=== PATIENT | male | born 1960 | race Caucasian/White ===

== ENCOUNTER → 2019-11-28 | Outpatient (CLI) | payer OTHER | END | disposition home or self-care (01) | LOC: CFH 15:08 | PROVIDERS: ATTEND Internal Medicine Cardiovascular Disease | DX: I08.0 Rheumatic disorders of both mitral and aortic valves (principal); I11.9 Hypertensive heart disease without heart failure | CPT/HCPCS: 93306 ==

== ENCOUNTER 2019-12-21 10:58 | Day surgery (SDC) | payer OTHER ==
[~2019-12-21] VITALS: Ht 172.7 cm; Wt 86.4 kg
[2019-12-21 11:32] VITALS: BP 148/78
[2019-12-21 11:52] LABS: BASOPHILS % (AUTO) 1 % (0-1); EOSINOPHILS % (AUTO) 0 % (1-7); LYMPHOCYTES % (AUTO) 25 % (22-44); MEAN CORPUSCULAR HEMOGLOBIN 30.4 pg (27.5-34.5); MEAN CORPUSCULAR HGB CONC 33.8 g/dL (33.2-36.2); MEAN PLATELET VOLUME 8.7 fL (7.4-10.4); MONOCYTES % (AUTO) 7 % (2-9); NEUTROPHILS % (AUTO) 67 % (42-75); PLATELET COUNT 218 x10^3/uL (130-400); RED BLOOD COUNT 5.53 x10^6/uL (4.38-5.82)
[2019-12-21 11:55] LABS: MD NO
[2019-12-21 11:58] LABS: ANION GAP 5 mmol/L (5-15); CHLORIDE 111 mmol/L (98-107); CREATININE 0.99 mg/dL (0.7-1.3)
[2019-12-21] MEDS ORDERED: SODIUM CHLORIDE 0.9% 1,000 ML IV SCH ×2 (12:00→13:30)
[2019-12-21] MEDS ORDERED: MIDAZOLAM 1 MG/ML, 5ML ONE (12:33)
[2019-12-21] MEDS ORDERED: BIVALIRUDIN 250 MG ONE (12:33)
[2019-12-21] MEDS ORDERED: LIDOCAINE-MPF 1%, 5ML ONE (12:33)
[2019-12-21] MEDS ORDERED: TICAGRELOR 90 MG TABLET ONE (12:33)
[2019-12-21] MEDS ORDERED: HEPARIN 1,000 UNITS/ML, 10ML ONE (12:33)
[2019-12-21] MEDS ORDERED: FENTANYL PF 100 MCG/2ML ONE (12:33)
[2019-12-21] MEDS ORDERED: VERAPAMIL 2.5 MG/ML, 2ML ONE (12:33)
== END 2019-12-21 14:47 | disposition home or self-care (01) ==
LOC: CACL 10:58
PROVIDERS: ATTEND Internal Medicine Cardiovascular Disease
DX: I35.0 Nonrheumatic aortic (valve) stenosis (principal); I77.810 Thoracic aortic ectasia
CPT/HCPCS: 36415; 80048; 85025; 93454; 99156; C1769; C1894; J1644; J2250; J3010; Q9967; 93458; J0583

== ENCOUNTER 2019-12-28 09:56 | Outpatient (CLI) | payer OTHER ==
[2019-12-28] MEDS ORDERED: VISIPAQUE 320 MG/ML, 150ML BOTTLE ONE (11:47)
== END 2019-12-28 23:59 | disposition home or self-care (01) ==
LOC: CVU 09:56 → RAD 23:59
PROVIDERS: ATTEND Internal Medicine Cardiovascular Disease
DX: Z01.810 Encounter for preprocedural cardiovascular examination (principal); I35.0 Nonrheumatic aortic (valve) stenosis; K76.89 Other specified diseases of liver; N28.89 Other specified disorders of kidney and ureter; K57.30 Diverticulosis of large intestine without perforation or abscess without bleeding; I65.23 Occlusion and stenosis of bilateral carotid arteries; R06.02 Shortness of breath
CPT/HCPCS: 71275; 74174; 93880; 94010; 94726; 94729; Q9967

== ENCOUNTER 2020-02-22 11:28 | Outpatient (CLI) | payer OTHER ==
[~2020-02-22 11:28] MED LIST: NONE PER PT
[2020-02-22 12:37] LABS: BASOPHILS % (AUTO) 0 % (0-1); EOSINOPHILS % (AUTO) 1 % (1-7); LYMPHOCYTES % (AUTO) 26 % (22-44); MEAN CORPUSCULAR HEMOGLOBIN 30.6 pg (27.5-34.5); MEAN CORPUSCULAR HGB CONC 34.3 g/dL (33.2-36.2); MONOCYTES % (AUTO) 6 % (2-9); NEUTROPHILS % (AUTO) 67 % (42-75); PLATELET COUNT 225 x10^3/uL (130-400); RED BLOOD COUNT 5.29 x10^6/uL (4.38-5.82); RED CELL DISTRIBUTION WIDTH 13.1 % (9.4-14.8)
[2020-02-22 12:39] LABS: MD NO
[2020-02-22 12:46] LABS: ALANINE AMINOTRANSFERASE 28 U/L (12-78); ALBUMIN 3.8 g/dL (3.4-5.0); ANION GAP 3 mmol/L (5-15); CALCIUM 8.7 mg/dL (8.5-10.1); CHLORIDE 108 mmol/L (98-107)
[2020-02-22 12:49] LABS: ALKALINE PHOSPHATASE 114 U/L (45-117); BILIRUBIN,TOTAL 0.6 mg/dL (0.2-1.0); CREATININE 0.97 mg/dL (0.7-1.3); TOTAL PROTEIN 7.2 g/dL (6.4-8.2)
[2020-02-22 12:55] LABS: MICROSCOPIC NOT IND
[2020-02-22 13:05] LABS: INTERNATIONAL NORMALIZED RATIO 1.02 (0.93-1.1); PROTHROMBIN TIME 10.8 Seconds (9.6-11.5)
[2020-03-01] MEDS ORDERED: POTA20TA6 PO (12:48)
[2020-03-01] MEDS ORDERED: TRAM50TA2 PO (12:48)
[2020-03-01] MEDS ORDERED: FURO-93 PO (12:48)
[2020-03-01] MEDS ORDERED: ASPI81TA45 PO (12:48)
[2020-03-01] MEDS ORDERED: METO25TA35 PO (12:48)
== END 2020-02-22 23:59 | disposition home or self-care (01) ==
LOC: STAR 11:28
PROVIDERS: ATTEND Thoracic Surgery (Cardiothoracic Vascular Surgery)
DX: Z01.812 Encounter for preprocedural laboratory examination (principal); Z20.828 Contact with and (suspected) exposure to other viral communicable diseases; R94.31 Abnormal electrocardiogram [ECG] [EKG]; I51.7 Cardiomegaly; I35.0 Nonrheumatic aortic (valve) stenosis; I71.2 Thoracic aortic aneurysm, without rupture
CPT/HCPCS: 71046; 80053; 81003; 83036; 85025; 85610; 85730; 87635; 93005

== ENCOUNTER → 2020-05-23 | Outpatient (CLI) | payer OTHER ==
[~2020-05-23] MED LIST changes: +ASPI81TA45 PO; +FURO-93 PO; +METO25TA35 PO; +POTA20TA6 PO; +TRAM50TA2 PO
[2020-05-23 15:04] LABS: BASOPHILS % (AUTO) 1 % (0-1); EOSINOPHILS % (AUTO) 1 % (1-7); LYMPHOCYTES % (AUTO) 26 % (22-44); MEAN CORPUSCULAR HEMOGLOBIN 29.1 pg (27.5-34.5); MEAN CORPUSCULAR HGB CONC 33.1 g/dL (33.2-36.2); MEAN PLATELET VOLUME 9.4 fL (7.4-10.4); MONOCYTES % (AUTO) 7 % (2-9); NEUTROPHILS % (AUTO) 65 % (42-75); PLATELET COUNT 220 x10^3/uL (130-400); RED BLOOD COUNT 5.33 x10^6/uL (4.38-5.82); RED CELL DISTRIBUTION WIDTH 14.1 % (9.4-14.8)
[2020-05-23 15:04] LABS: MICROSCOPIC NOT IND
[2020-05-23 15:08] LABS: MD NO
[2020-05-23 15:20] LABS: ALBUMIN 3.9 g/dL (3.4-5.0); ANION GAP 5 mmol/L (5-15); CHLORIDE 106 mmol/L (98-107); INTERNATIONAL NORMALIZED RATIO 1.02 (0.93-1.1); PROTHROMBIN TIME 10.9 Seconds (9.6-11.5)
[2020-05-23 15:22] LABS: ALANINE AMINOTRANSFERASE 24 U/L (12-78); ALKALINE PHOSPHATASE 127 U/L (45-117); BILIRUBIN,TOTAL 0.3 mg/dL (0.2-1.0); CREATININE 0.87 mg/dL (0.7-1.3); TOTAL PROTEIN 7.4 g/dL (6.4-8.2)
== END | disposition home or self-care (01) ==
LOC: STAR 14:03
PROVIDERS: ATTEND Urology
DX: Z01.818 Encounter for other preprocedural examination (principal); N28.89 Other specified disorders of kidney and ureter; Z20.822 Contact with and (suspected) exposure to COVID-19
CPT/HCPCS: 36415; 80053; 81003; 85025; 85610; 87086; 93005; U0003

== ENCOUNTER 2020-05-29 05:53 | Inpatient (IN) | payer OTHER ==
[~2020-05-29] VITALS: Ht 172.7 cm; Wt 93.0 kg
[2020-05-29 06:27] VITALS: BP 127/80
[2020-05-29] MEDS ORDERED: LACTATED RINGERS 1,000 ML IV SCH (06:30)
[2020-05-29] MEDS ORDERED: CHLORHEXIDINE 15 ML UDC PO ONE (06:30)
[2020-05-29] MEDS ORDERED: BUPIVACAINE/PF-EPI 0.25% 1:200K ONE (07:04)
[2020-05-29] MEDS ORDERED: MANNITOL PMX 20% 500 ML ONE ×2 (07:04→07:13)
[2020-05-29] MEDS ORDERED: INDIGO CARMINE 0.8%, 5ML ONE (07:04)
[2020-05-29] MEDS ORDERED: FUROSEMIDE 20 MG/2 ML ONE ×2 (07:04→07:12)
[2020-05-29] MEDS ORDERED: ALBUMIN HUMAN 5% 500 ML ONE (07:13)
[2020-05-29] MEDS ORDERED: MIDAZOLAM 1 MG/ML, 2ML ONE (07:15)
[2020-05-29] MEDS ORDERED: FENTANYL PF 250 MCG/5ML ONE (07:15)
[2020-05-29] MEDS ORDERED: PHENYLEPHRINE 10 MG/ML ONE (07:28)
[2020-05-29] MEDS ORDERED: DEXAMETHASONE 4 MG/ML, 1ML ONE (07:28)
[2020-05-29] MEDS ORDERED: CEFAZOLIN 1,000 MG ONE (07:28)
[2020-05-29] MEDS ORDERED: PROPOFOL 10 MG/ML, 20ML ONE (07:28)
[2020-05-29] MEDS ORDERED: SUGAMMADEX 200 MG/2 ML IVPush ONE (07:28)
[2020-05-29] MEDS ORDERED: ONDANSETRON 2MG/ML, 2ML ONE (07:28)
[2020-05-29] MEDS ORDERED: ROCURONIUM 10 MG/ML,10ML ONE (07:28)
[2020-05-29] MEDS ORDERED: MEPERIDINE/PF 25MG/0.5ML IVPush PRN (07:30)
[2020-05-29] MEDS ORDERED: METOPROLOL 1 MG/ML, 5ML IV PRN (07:30)
[2020-05-29] MEDS ORDERED: PROMETHAZINE 25 MG/ML, 1ML IVPush PRN (07:30)
[2020-05-29] MEDS ORDERED: METOCLOPRAMIDE 5 MG/ML, 2ML IVPush PRN (07:30)
[2020-05-29] MEDS ORDERED: ALBUTEROL SULFATE 2.5 MG/3 ML NPPB PRN (07:30)
[2020-05-29] MEDS ORDERED: EPHEDRINE 50 MG/ML, 1ML IVPush PRN (07:30)
[2020-05-29] MEDS ORDERED: HALOPERIDOL 5 MG/ML IV PRN (07:30)
[2020-05-29] MEDS ORDERED: LABETALOL 5MG/ML, 20ML IV PRN (07:30)
[2020-05-29] MEDS ORDERED: HYDROmorphone 1 MG/ML, 1ML INJ IVPush PRN (07:30)
[2020-05-29] MEDS ORDERED: ONDANSETRON 2MG/ML, 2ML IVPush PRN (07:30)
[2020-05-29] MEDS ORDERED: OXYcodone 5 MG/5 ML ORAL.SOL UDC PO PRN (07:30)
[2020-05-29] MEDS ORDERED: DIAZEPAM 5 MG/ML, 2ML IVPush PRN (07:30)
[2020-05-29] MEDS ORDERED: METHOCARBAMOL 1,000 MG in DEXTROSE 5% 100 ML IV PRN (07:30)
[2020-05-29] MEDS ORDERED: DIPHENHYDRAMINE 50 MG/ML, 1ML IVPush PRN (07:30)
[2020-05-29] MEDS ORDERED: ALBUTEROL/IPRATROPIUM 2.5MG/0.5MG, 3 ML NPPB PRN (07:30)
[2020-05-29] MEDS ORDERED: hydrALAzine 20 MG/ML, 1ML IV PRN (07:30)
[2020-05-29] MEDS ORDERED: ACETAMINOPHEN 325 MG TABLET PO PRN (07:30)
[2020-05-29] MEDS ORDERED: HYDROmorphone 1 MG/ML, 1ML INJ ONE ×2 (08:12→10:00)
[2020-05-29] MEDS ORDERED: FENTANYL PF 100 MCG/2ML ONE (11:23)
[2020-05-29] MEDS ORDERED: OXYcodone 5 MG/5 ML ORAL.SOL UDC ONE (11:24)
[2020-05-29] MEDS: FENTANYL PF 100 MCG/2ML IV PRN ×2 (11:27→11:43)
[2020-05-29 12:30] VITALS: BP 150/81
[2020-05-29 13:27] VITALS: BP 126/73
[2020-05-29] MEDS ORDERED: TEMAZEPAM 15 MG CAPSULE PO PRN (13:30)
[2020-05-29] MEDS ORDERED: HYDROcodone/APAP 5/325 TABLET PO PRN (13:30)
[2020-05-29] MEDS ORDERED: SODIUM CHLORIDE 0.9% 1,000 ML IV SCH (13:30)
[2020-05-29] MEDS ORDERED: ONDANSETRON 2MG/ML, 2ML IV PRN (13:30)
[2020-05-29] MEDS ORDERED: morphine SULFATE 10 MG/ML, 1ML IV PRN (13:30)
[2020-05-29] MEDS: KETOROLAC 30 MG/1 ML IV SCH ×2 (14:14→19:55)
[2020-05-29] MEDS: CEFAZOLIN PMX 1GM/50ML 50 ML IVPB SCH ×2 (16:33→23:41)
[2020-05-29 17:44] VITALS: BP 117/72
[2020-05-29] MEDS: METOPROLOL TARTRATE 25 MG TAB PO SCH (17:44)
[2020-05-29 18:57] VITALS: BP 110/68
[2020-05-30 00:20] VITALS: BP 111/67
[2020-05-30] MEDS: KETOROLAC 30 MG/1 ML IV SCH ×2 (01:57→09:15)
[2020-05-30] MEDS: SODIUM CHLORIDE 0.9% 1,000 ML IV SCH ×2 (03:00→13:05)
[2020-05-30 05:01] VITALS: BP 104/68
[2020-05-30 05:12] LABS: ANION GAP 6 mmol/L (5-15); CALCIUM 8.4 mg/dL (8.5-10.1); CHLORIDE 110 mmol/L (98-107)
[2020-05-30 05:14] LABS: CREATININE 1.18 mg/dL (0.7-1.3)
[2020-05-30] MEDS: METOPROLOL TARTRATE 25 MG TAB PO SCH (05:49)
[2020-05-30 08:00] VITALS: BP 113/69
[2020-05-30] MEDS ORDERED: HYDR-1067 PO (11:42)
[2020-05-30 12:35] VITALS: BP 104/66
[2020-05-30] MEDS ORDERED: SODIUM CHLORIDE 0.9% 1,000 ML IV SCH (13:30)
== END 2020-05-30 14:20 | disposition home or self-care (01) | DRG 661 ==
LOC: OUT 05:53 → 4NE 12:30 → OUT 13:13 → DCLOUNGE 05-30 14:13
PROVIDERS: ADMIT Urology; ATTEND Urology
PROC: 8E0W4CZ Robotic Assisted Procedure of Trunk Region, Percutaneous Endoscopic Approach (ICD-10-PCS; 2020-05-29)
PROC: BT42ZZZ Ultrasonography of Left Kidney (ICD-10-PCS; 2020-05-29)
PROC: 0TB14ZZ Excision of Left Kidney, Percutaneous Endoscopic Approach (ICD-10-PCS; principal; 2020-05-29 07:30)
DX: N28.89 Other specified disorders of kidney and ureter (principal)
CPT/HCPCS: 36415; 80048; 85014; 85018; 86850; 86900; 88307; C1729; G0378; J0690; J1100; J1170; J1885; J2250; J2405; J2704; J3010; P9045; C1760; J1940; J2370; J7030; J7120

== ENCOUNTER → 2020-08-12 | Outpatient (CLI) | payer OTHER ==
[~2020-08-12] MED LIST changes: +GADOTERATE 10 MMOL/20 ML VIAL ONE; +HYDR-2214 PO
== END | disposition home or self-care (01) ==
LOC: CFH 08:11
PROVIDERS: ATTEND Urology
DX: N28.89 Other specified disorders of kidney and ureter (principal); K76.89 Other specified diseases of liver
CPT/HCPCS: 74183; A9575

== ENCOUNTER → 2020-09-20 | Outpatient (CLI) | payer OTHER ==
[~2020-09-20] MED LIST changes: -GADOTERATE 10 MMOL/20 ML VIAL ONE
[2020-09-20 15:47] LABS: ALANINE AMINOTRANSFERASE 24 U/L (12-78); ALBUMIN 3.8 g/dL (3.4-5.0); ANION GAP 3 mmol/L (5-15); CALCIUM 8.8 mg/dL (8.5-10.1); CHLORIDE 104 mmol/L (98-107); CREATININE 0.92 mg/dL (0.7-1.3)
[2020-09-20 15:49] LABS: ALKALINE PHOSPHATASE 128 U/L (45-117); BILIRUBIN,TOTAL 0.4 mg/dL (0.2-1.0); TOTAL PROTEIN 7.7 g/dL (6.4-8.2)
[2020-09-20 15:50] LABS: INTERNATIONAL NORMALIZED RATIO 1.02 (0.93-1.1); PROTHROMBIN TIME 10.9 Seconds (9.6-11.5)
[2020-09-20 15:58] LABS: BASOPHILS % (AUTO) 0 % (0-1); EOSINOPHILS % (AUTO) 1 % (1-7); LYMPHOCYTES % (AUTO) 24 % (22-44); MEAN CORPUSCULAR HEMOGLOBIN 30.1 pg (27.5-34.5); MEAN CORPUSCULAR HGB CONC 33.9 g/dL (33.2-36.2); MEAN PLATELET VOLUME 9.1 fL (7.4-10.4); MONOCYTES % (AUTO) 6 % (2-9); NEUTROPHILS % (AUTO) 68 % (42-75); PLATELET COUNT 221 x10^3/uL (130-400); RED CELL DISTRIBUTION WIDTH 14.2 % (9.4-14.8)
== END | disposition home or self-care (01) ==
LOC: STAR 14:25
PROVIDERS: ATTEND Urology
DX: Z01.818 Encounter for other preprocedural examination (principal); N28.89 Other specified disorders of kidney and ureter; R00.1 Bradycardia, unspecified
CPT/HCPCS: 36415; 80053; 85025; 85610; 85730; 87086; 93005